=== PATIENT | male | born 2000 | race Caucasian/White ===

== ENCOUNTER 2021-03-24 09:05 | Emergency (ER) | payer OTHER, BC, SELFPAY ==
--- NOTE | ~2021-03-24 | XR_ITS ---
EXAMINATION: XR femur RT min 2V DATE: 03/24/2021 10:34 INDICATION: Right thigh pain. TECHNIQUE: 2 views of right femur on 6 radiographs were obtained. COMPARISON: None. FINDINGS: Bone alignment is normal. No fracture. There is mild osteoarthritis of medial and patellofe moral compartments of the knee characterized by tiny marginal osteophytes. No knee joint effusion. IMPRESSION: 1. Mild right knee osteoarthritis. Reviewed, dictated and finalized at location B.
[2021-03-24 09:16] VITALS: BP 143/64; PULSE 83; RESP 16; TEMP 36.3; O2SAT 100
--- NOTE | 2021-03-24 10:18 | ED.LOWEXIN ---
HPI - Extremity Injury (Lower) General Chief Complaint: Extremity Injury, Lower Stated Complaint: rt leg pain Time Seen by Provider: 03/24/21 09:25 Source: patient Mode of arrival: ambulatory Limitations: no limitations History of Present Illness HPI Narrative: This is a 21-year-old male that presents the emergency department for right upper leg pain after an injury this morning. Reports he started to take off running and felt a pop in the back of his right upper leg posteriorly. Reports he has had pain in the area since. Worse with bending his knee and walking. Denies numbness. Related Data Home Medications Medication Instructions Recorded Confirmed No Home Medications 03/24/21 03/24/21 Allergies Allergy/AdvReac Type Severity Reaction Status Date / Time No Known Allergies Allergy Verified 03/24/21 09:19 Review of Systems Review of Systems: Narrative: CONSTITUTIONAL: Denies fever SKIN: Denies rash MUSCULOSKELETAL: Reports myalgia. NEUROLOGIC: Denies numbness All systems reviewed & are unremarkable except as noted in HPI and below PMFSH Past Medical History Medical History (Updated 03/24/21 @ 11:01 by Darline Dhillon PA-C) No active medical problems Social History Social History (Updated 03/24/21 @ 10:21 by Darline Dhillon PA-C) Substance use: never Exam Narrative: Exam Narrative: GENERAL: Well-appearing, well-nourished, and in no acute distress. HEAD: Normocephalic, atraumatic. EYES: EOMI. CHEST: Clear to auscultation. No respiratory distress. No wheezes rales or rhonchi HEART: Regular rate and rhythm. No murmur heard. Normal peripheral pulses. EXTREMITIES: Decreased active range of motion in the right knee due to pain is in the posterior thigh. Tender to palpation of the biceps femoris insertion. No edema, bruising or obvious deformity. Normal DP pulses. Normal sensation SKIN: Warm, dry, no rash. NEURO: No focal deficits. Alert and oriented x3. PSYCH: Normal mood and affect Course Vital Signs Vital signs: Vital Signs Temperature 97.3 F L 03/24/21 09:16 Pulse Rate 83 03/24/21 09:16 Respiratory Rate 16 03/24/21 09:16 Blood Pressure 143/64 H 03/24/21 09:16 Pulse Oximetry 100 03/24/21 09:16 Temperature 97.3 F L 04/23/21 09:16 Pulse Rate 83 03/24/21 09:16 Respiratory Rate 16 03/24/21 09:16 Blood Pressure 143/64 H 03/24/21 09:16 Pulse Oximetry 100 03/24/21 09:16 MDM - Extremity Injury (Lower) MDM Narrative Medical decision making narrative: Patient presents to the ER for right posterior thigh pain after a running injury today. Right femur x-ray is without acute findings. Exam consistent with biceps femoris strain. He was placed in an ALISSON wrap. Instructed to rest, ice and take [id number] pain medication as needed. He is to follow-up with primary care doctor. He was given warnings to return to the ER Imaging Data Radiologist's impression: ITS Impressions Femur X-Ray 03/24/21 10:37 IMPRESSION: 1. Mild right knee osteoarthritis. Critical Care Time Critical Care Time Critical Care Time: No Discharge Plan Discharge Clinical Impression: Biceps femoris tendon strain at knee Patient Disposition: Home, Self-Care Condition: Stable Instructions: Hamstring Injury (ED) Additional Instructions: Return to the ER if you experience fever, redness and swelling of your leg, weakness, numbness, or any other symptoms that are concerning to you Rest, use ice/heat, take anti-inflammatories (Aleve, Ibuprofen, Naproxen, etc) or Tylenol as needed for pain Follow up with your primary care doctor Prescriptions: No Action No Home Medications RF: 0 Follow-up/Referrals: UNKNOWN,DOCTOR [Primary Care Provider] - 3 Days
--- NOTE | 2021-03-24 10:23 | PC.NURSE ---
Pt to radiology.
== END 2021-03-24 11:20 | disposition home or self-care (01) ==
PROVIDERS: Emergency Provider Emergency Medicine
DX: S76.311A Strain of muscle, fascia and tendon of the posterior muscle group at thigh level, right thigh, initial encounter (principal); X50.9XXA Other and unspecified overexertion or strenuous movements or postures, initial encounter; Y93.02 Activity, running
CPT/HCPCS: 73552; 99283